=== PATIENT | female | born 1940 | race African-American/Black ===

== ENCOUNTER 2016-12-07 21:27 | Emergency (ER) | payer MEDICARE ==
[~2016-12-07] VITALS: Ht 160 cm; Wt 68.0 kg
--- NOTE | ~2016-12-07 | EKG ---
[place] [address] [facility] [place] [address] ELECTROCARDIOGRAM REPORT Name: JAZ REDMAN [id number] Admission: 12/07/16 Attend Phys: Discharge: 12/08/16 Date of : 44 Report #: [id number] THIS REPORT FOR: //name// [facility] ED Test Date: 2016-12-07 Test Time: 21:32:09 Pat Name: JAZ REDMAN Department: Room: Gender: F Vmware Systems Administrator: JALEN : 1940 Requested By: Eduardo Wolf Order Number: [id number] MD: Valdez Mckeon Measurements Intervals [place] Rate: 80 P: 26 NH: 216 QRS: 250 QRSD: 158 T: 117 QT: 446 QTc: 515 Interpretive Statements Atrial fibrillation Left bundle branch block Leftward axis No previous ECG available for comparison Electronically Signed On 12-09-2016 7:52:43 CDT by Valdez Mckeon [email or web address] <ELECTRONICALLY SIGNED> By: Valdez Mckeon MD, [facility] 12/09/16 0752 [id number] 31 Valdez Mckeon MD, FACC /EPI
[2016-12-07] MEDS ORDERED: ASPIR 8181 MG PO (21:59)
[2016-12-07] MEDS ORDERED: COMBIGAN EYE DR10 ML OPHTHALMIC (22:00)
[2016-12-07] MEDS ORDERED: FLORINEF ACETA0.1 MG PO (22:01)
[2016-12-07] MEDS ORDERED: CELEXA20 MG PO (22:01)
[2016-12-07] MEDS ORDERED: DUONEB 2.5-0.5 M3 ML INH (22:02)
[2016-12-07] MEDS ORDERED: XALATAN2.5 ML OPHTHALMIC (22:02)
[2016-12-07] MEDS ORDERED: NEURONTIN 300300 M1 PO (22:02)
[2016-12-07] MEDS ORDERED: OMEPRAZOLE 20 M20 M1 PO (22:03)
[2016-12-07] MEDS ORDERED: NITROGLYCERIN0.4 MG SUBLING (22:03)
[2016-12-07] MEDS ORDERED: MIDODRINE HCL 55 M1 PO (22:03)
[2016-12-07] MEDS ORDERED: RENA-VITE RX T1 EACH PO (22:03)
[2016-12-07] MEDS ORDERED: MUCINEX600 MG PO (22:04)
[2016-12-07] MEDS ORDERED: TRAZODONE HCL50 MG PO (22:04)
[2016-12-07] MEDS ORDERED: SPIRIVA INH (22:04)
[2016-12-07] MEDS ORDERED: TORSEMIDE100 MG PO (22:04)
[2016-12-07] MEDS ORDERED: TRIAMCINOLONE A80 G2 TOP (22:05)
[2016-12-07] MEDS ORDERED: GABAPENTIN 100100 MG PO (22:05)
[2016-12-07] MEDS ORDERED: LIDODERM1 EACH TRANSDERM (22:05)
[2016-12-07] MEDS ORDERED: PERCOCET PO (22:06)
[2016-12-07] MEDS ORDERED: VOLTAREN GEL 1100 G2 TOP (22:06)
[2016-12-07] MEDS ORDERED: SYMBICORT160 MCG/4. INH (22:06)
[2016-12-07 23:07] LABS: HEMATOCRIT 24.4 % (37.0-47.0); HEMOGLOBIN 8.3 gm/dL (12.0-15.0); MCH 32.7 pg (26.0-34.0); MCHC 34.1 g/dL (28.0-37.0); MCV 96.1 fL (80.0-100.0); PLATELET COUNT 132 thou/uL (150-400); RBC 2.54 mil/uL (4.20-5.00); RDW 19.1 % (10.5-14.5); WBC 6.1 thou/uL (4.0-11.0)
[2016-12-07 23:09] LABS: MANUAL DIFF YES
[2016-12-07 23:15] LABS: ANION GAP 11 mmol/L (7-16); BUN 10 mg/dL (7-18); CALCIUM 9.1 mg/dL (8.5-10.1); CHLORIDE 98 mmol/L (98-107); CO2 29 mmol/L (21-32); CREATININE 2.6 mg/dL (0.6-1.0); GLUCOSE 96 mg/dL (74-106); SODIUM 138 mmol/L (136-145)
[2016-12-07 23:24] LABS: ALBUMIN 2.4 g/dL (3.4-5.0); ALKALINE PHOSPHATASE 138 U/L (46-116); SGOT 22 U/L (15-37); SGPT 12 U/L (30-65); TOTAL BILIRUBIN 0.9 mg/dL (<0.1-1.0); TOTAL PROTEIN 6.4 g/dL (6.4-8.2); TROPONIN-I < 0.04 ng/mL (<0.04-0.07)
[2016-12-08 01:18] LABS: ABSOLUTE NEUTROPHILS 4.8 thou/uL (1.4-8.2); ANISOCYTOSIS 2+; TOTAL CELL COUNT 100
[2016-12-08 01:32] VITALS: BP 113/46
== END 2016-12-08 01:32 | disposition home or self-care (01) ==
LOC: ER 21:27
PROVIDERS: Physician Assistant
DX: I13.0 Hypertensive heart and chronic kidney disease with heart failure and stage 1 through stage 4 chronic kidney disease, or unspecified chronic kidney disease (principal); N18.9 Chronic kidney disease, unspecified; I50.9 Heart failure, unspecified; J44.9 Chronic obstructive pulmonary disease, unspecified; J96.12 Chronic respiratory failure with hypercapnia; Z79.82 Long term (current) use of aspirin

== ENCOUNTER 2016-12-22 14:40 | Emergency (ER) | payer MEDICARE ==
[~2016-12-22] VITALS: Ht 160 cm; Wt 90.7 kg
--- NOTE | ~2016-12-22 | EKG ---
[address] [address] ELECTROCARDIOGRAM REPORT Name: JAZ REDMAN Room #: [facility]..#: [id number] Admission: Attend Phys: Discharge: Date of : 42 Report #: [id number] THIS REPORT FOR: //name// [facility] ED Test Date: 2016-12-22 Test Time: 15:00:43 Pat Name: JAZ REDMAN Department: Room: Gender: F Hot Saw Operator: [id number] : 1940 Requested By: Sully Shea Order Number: [id number] MD: Ranjit Hinton Measurements Intervals [place] Rate: 66 P: [place]: QRS: -63 QRSD: 169 T: 65 QT: 481 QTc: 505 Interpretive Statements Atrial fibrillation Left bundle branch block Compared to ECG 12/07/2016 21:32:09 Left-axis deviation no longer present Electronically Signed On 12-22-2016 15:52:46 CDT by Ranjit Hinton [email or web address] <ELECTRONICALLY SIGNED> By: Ranjit Hinton MD 12/22/16 1552 1500 MD MONIQUE Lake
[~2016-12-22 14:40] MED LIST: ASPIR 8181 MG PO; CELEXA20 MG PO; COMBIGAN EYE DR10 ML OPHTHALMIC; DUONEB 2.5-0.5 M3 ML INH; FLORINEF ACETA0.1 MG PO; GABAPENTIN 100100 MG PO; LIDODERM1 EACH TRANSDERM; MIDODRINE HCL 55 M1 PO; MUCINEX600 MG PO; NEURONTIN 300300 M1 PO; NITROGLYCERIN0.4 MG SUBLING; OMEPRAZOLE 20 M20 M1 PO; PERCOCET PO; RENA-VITE RX T1 EACH PO; SPIRIVA INH; SYMBICORT160 MCG/4. INH; TORSEMIDE100 MG PO; TRAZODONE HCL50 MG PO; TRIAMCINOLONE A80 G2 TOP; VOLTAREN GEL 1100 G2 TOP; XALATAN2.5 ML OPHTHALMIC
[2016-12-22 16:04] LABS: HEMATOCRIT 22.6 % (37.0-47.0); HEMOGLOBIN 7.7 gm/dL (12.0-15.0); MCH 32.6 pg (26.0-34.0); MCHC 34.3 g/dL (28.0-37.0); MCV 95.1 fL (80.0-100.0); PLATELET COUNT 151 thou/uL (150-400); RBC 2.37 mil/uL (4.20-5.00); RDW 18.8 % (10.5-14.5); WBC 9.7 thou/uL (4.0-11.0)
[2016-12-22 16:05] LABS: MANUAL DIFF YES
[2016-12-22 16:20] LABS: CALCIUM 9.9 mg/dL (8.5-10.1); CREATININE 3.6 mg/dL (0.6-1.0); POTASSIUM 4.7 mmol/L (3.5-5.1)
[2016-12-22 16:30] LABS: ABSOLUTE NEUTROPHILS 6.9 thou/uL (1.4-8.2); ANISOCYTOSIS 1+; TOTAL CELL COUNT 100
[2016-12-22 17:54] VITALS: BP 133/56
== END 2016-12-22 17:55 ==
LOC: ER 14:40
PROVIDERS: Emergency Medicine
DX: D64.9 Anemia, unspecified (principal); J44.9 Chronic obstructive pulmonary disease, unspecified; I12.9 Hypertensive chronic kidney disease with stage 1 through stage 4 chronic kidney disease, or unspecified chronic kidney disease; N18.9 Chronic kidney disease, unspecified

== ENCOUNTER 2016-12-26 06:31 | Inpatient (IN) | payer OTHER ==
[~2016-12-26] VITALS: Ht 162.6 cm; Wt 94.5 kg
[2016-12-26] VITALS (52 sets, daily range): BP systolic 62–159; BP diastolic 30–123
--- NOTE | ~2016-12-26 | HC ---
[facility] [place] [address] CONSULTATION Name: JAZ REDMAN Room #: [facility]-P ADM IN M.R.#: [id number] Admission: 12/26/16 Attend Phys: Cirilo Wade MD Discharge: Date of : 42 Report #: [id number] THIS REPORT FOR: //name// CC: Carol Wade REASON FOR CONSULTATION: I was asked to evaluate concerning septic shock. HISTORY OF PRESENT ILLNESS: The patient was a 76-year-old with end-stage renal disease who resides at [facility]. She dialyzes through left upper extremity AV fistula. 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 The patient presents with fever, hypotension, hyperkalemia, abdominal pain. No reported diarrhea. She has been given Kayexalate which resulted in loose stool. No nausea or vomiting. Denies any cough or sputum production. She is on oxygen mask at this time. PAST MEDICAL HISTORY: Hypertension, end-stage renal disease, subluxation of the right hip, COPD, coronary artery disease, coronary bypass grafting. ALLERGIES: None. MEDICATIONS: Aspirin, Florinef, gabapentin, midodrine, torsemide, trazodone, lidocaine, oxycodone, was given vancomycin and Zosyn in the Emergency Room. FAMILY HISTORY: Noncontributory. SOCIAL HISTORY: longterm resident, otherwise unable to obtain any further history. REVIEW OF SYSTEMS: Noted above, now with indwelling Phipps catheter and bloody urine. Has a wound to her right thigh. No chest pain, no headache. PHYSICAL EXAMINATION: VITAL SIGNS: Temperature 103 degrees, tachycardic at 120, respiratory rate 34, blood pressure is 76/42 at 6 this morning. Currently 119 pulse, respiratory rate 17, blood pressure 99/51. She has been given IV fluids and IV antibiotic therapy. She is now on 2 liters of oxygen per nasal cannula. GENERAL: She was arousable, unable to answer simple questions yes or no. Did report that she is having abdominal pain. Mild nausea. HEENT: Unremarkable. NECK: Supple, no adenopathy. CHEST: Few crackles in the bases posteriorly. HEART: Regular without appreciable murmur. EXTREMITIES: Left upper extremity AV fistula was unremarkable. ABDOMEN: Had ventral hernia. She was mildly distended, she was tender mostly in the upper abdomen. No other masses or hepatosplenomegaly identified. EXTREMITIES: Unremarkable. She had a full thickness wound to the medial thigh [address] [address] CONSULTATION Name: JAZ REDMAN Room #: [address] [place] [address] [place] [facility].#: [id number] Admission: 12/26/16 Attend Phys: Cirilo Wade MD Discharge: Date of : 42 Report #: [id number] with no purulent drainage. LABORATORY STUDIES: Hemoglobin 7.5, WBC 5.4, platelet count 111,000. Differential unremarkable. Sodium 137, potassium 6.1, bicarb of 20, creatinine 5.2. Lactate 5.5. ABGs on nonrebreather mask showed a pO2 of 218, pCO2 of 33, pH 7.39, bicarbonate of 19. Urinalysis, many wbc's, rbc's and bacteria. Blood cultures are pending. Sputum culture to be collected. Chest x-ray, bilateral basilar infiltrates and atelectasis with vascular congestion. IMPRESSION: A 76-year-old with fever and septic shock. Sources to consider would be intraabdominal infection versus urinary tract infection versus pneumonia, healthcare associated. She has end-stage renal disease and hypertension as a baseline. Further complications include hyperkalemia and lactic acidosis. RECOMMENDATION: We will await cultures of blood and urine. Attempt to obtain sputum culture if possible. Continue with broad antibiotic coverage. We will also image her nature abdomen for further evaluation. <ELECTRONICALLY SIGNED> By: David Serrano MD 12/27/16 0823 1039 1115 David Serrano MD /nt
--- NOTE | ~2016-12-26 | EKG ---
[address] [address] ELECTROCARDIOGRAM REPORT Name: JAZ REDMAN Room #: 241-P ADM IN M.R.#: [id number] Admission: 12/26/16 Attend Phys: Cirilo Wade MD Discharge: Date of : 42 Report #: [id number] THIS REPORT FOR: //name// [facility] ED Test Date: 2016-12-26 Test Time: 06:52:15 Pat Name: JAZ REDMAN Department: Room: 241 Gender: F Morning Nanny: J CARLOS : 1940 Requested By: Yue Siegel Order Number: [id number] MD: Ranjit Hinton Measurements Intervals [place] Rate: 114 P: 0 SD: 131 QRS: -104 QRSD: 147 T: 76 QT: 369 QTc: 509 Interpretive Statements Atrial fibrillation. Left atrial enlargement LBBB Electronically Signed On 12-26-2016 16:37:37 CDT by Ranjit Hinton [email or web address] <ELECTRONICALLY SIGNED> By: Ranjit Hinton MD 12/26/16 1637 0652 0652 MD MONIQUE Powell
--- NOTE | ~2016-12-26 | 2DMMODE ---
[facility] [address] [place] [address] 2 D/M-MODE ECHOCARDIOGRAM Name: JAZ REDMAN Room #: 241-P [facility] IN ..#: [id number] Admission: 12/26/16 Attend Phys: Cirilo Wade MD Discharge: Date of : 42 Date of Service: 12/26/16 1439 Report #: [id number] THIS REPORT FOR: //name// APPROVED REPORT Study performed: 12/26/2016 13:06:07 EXAM: Comprehensive 2D, Doppler, and color-flow Echocardiogram Patient Location: Bedside Room #: 241 Status: routine BSA: 1.83 HR: 93 bpm BP: 99/51 mmHg Rhythm: Irregular Other Information Study Quality: Adequate Technically limited study due to Patient in ICU, limited mobility and cooperation. Indications Aortic valve replacement, Sepsis. Hx: Ischemic heart disease, COPD, HTN, ESRD 2D Dimensions RVDd: 52.81 mm LVEF(%): 49.25 (>50%) IVSd: 11.57 (7-11mm) LVOT Diam: 17.87 (18-24mm) LVDd: 44.87 mm PWd: 14.59 (7-11mm) LVDs: 33.75 (25-40mm) Aortic Root: 22.64 mm Henderson's LVEF: 49.25 % Volumes Left Atrial Volume (Systole) Single Plane 4CH: 84.11 mL Single Plane 2CH: 98.51 mL LA ESV Index: 53.00 mL/m2 Aortic Valve AoV Peak Nghia.: 2.63 m/s AO Peak Gr.: 27.79 mmHg LVOT Max P.74 mmHg AO Mean Gr.: 16.92 mmHg AO V2 Mean: 1.96 m/s LVOT Max V: 0.82 m/s AO V2 VTI: 43.45 cm [facility] [place] [address] 2 D/M-MODE ECHOCARDIOGRAM Name: JAZ REDMAN Room #: [facility] IN ..#: [id number] Admission: 12/26/16 Attend Phys: Cirilo Wade MD Discharge: Date of : 42 Date of Service: 12/26/16 1439 Report #: [id number] Vmax: 0.78 cm2 Mitral Valve E/A Ratio: 1.3 MV Decel. Time: 220.80 ms MV E Max Nghia.: 1.43 m/s MV A Nghia.: 1.10 m/s MV PHT: 64.03 ms Pulmonary Valve PV Peak Nghia.: 1.09 m/s PV Peak Gr.: 4.78 mmHg Tricuspid Valve TR Peak Nghia.: 3.32 m/s RAP Estimate: 15.00 mmHg TR Peak Gr.: 44.14 mmHg PA Pressure: 59.00 mmHg Left Ventricle The left ventricle is normal size. Dyskinetic motion of the septum. Mild concentric left ventricular hypertrophy. Left ventricular systolic function is mildly decreased. LVEF is 45-50%. This study is not technically sufficient to allow evaluation of the LV diastolic function. Right Ventricle Right ventricle is dilated. Right ventricle is hypokinetic. Atria Left atrium is severely dilated. Right atrium is severely dilated. Aortic Valve A prosthetic aortic valve is noted (size and manufacture unknown) Peak velocity of 2.6m/s with a peak gradient of 28mmHg and a mean of 17mmHg. Trace aortic regurgitation. Mitral Valve Mitral valve leaflets are moderately thickened and calcified. There is mitral annular calcification. Moderate mitral regurgitation. Tricuspid Valve Tricuspid valve is not well visualized. Severe tricuspid regurgitation. Estimated PAP is 55-60mmHg. [address] [address] 2 D/M-MODE ECHOCARDIOGRAM Name: JAZ REDMAN Room #: 241-P [facility] IN [facility]#: [id number] Admission: 12/26/16 Attend Phys: Cirilo Wade MD Discharge: Date of : 42 Date of Service: 12/26/16 1439 Report #: [id number] Pulmonic Valve The pulmonary valve is normal in structure. Mild pulmonic regurgitation. Great Vessels The aortic root is normal in size. Ascending aorta is not well visualized. IVC is dilated and collapses <50% with inspiration. Pericardium There is no pericardial effusion. <Conclusion> The left ventricle is normal size. Dyskinetic motion of the septum. LVEF is 45-50%. Right ventricle is dilated. Right ventricle is hypokinetic. A prosthetic aortic valve is noted (size and manufacture unknown) Peak velocity of 2.6m/s with a peak gradient of 28mmHg and a mean of 17mmHg. Trace aortic regurgitation. Mitral valve leaflets are moderately thickened and calcified. There is mitral annular calcification. Moderate mitral regurgitation. Tricuspid valve is not well visualized. Severe tricuspid regurgitation. Estimated PAP is 55-60mmHg. The pulmonary valve is normal in structure. Mild pulmonic regurgitation. <ELECTRONICALLY SIGNED> By: Unruly Monsivais MD 12/26/16 1439 38 143 Unruly Monsivais MD /INF
--- NOTE | ~2016-12-26 | EKG ---
[address] [address] ELECTROCARDIOGRAM REPORT Name: JAZ REDMAN Room #: 241-P ADM IN M.R.#: [id number] Admission: 12/26/16 Attend Phys: Cirilo Wade MD Discharge: Date of : 42 Report #: [id number] THIS REPORT FOR: //name// [facility] Test Date: 2016-12-26 Test Time: 15:23:00 Pat Name: JAZ REDMAN Department: Room: 241 P Gender: F Assortment Planner: Laura ROMERO : 1940 Requested By: [place] Order Number: [id number] MD: Ranjit Hinton Measurements Intervals [place] Rate: 119 P: [place]: QRS: 257 QRSD: 160 T: 76 QT: 344 QTc: 485 Interpretive Statements Atrial fibrillation LBBB Electronically Signed On 12-26-2016 16:39:42 CDT by Ranjit Hinton [email or web address] <ELECTRONICALLY SIGNED> By: Ranjit Hinton MD 12/26/16 1639 1523 1523 Ranjit Hinton MD /OTIS
--- NOTE | ~2016-12-26 | EKG ---
[address] [address] ELECTROCARDIOGRAM REPORT Name: JAZ REDMAN Room #: 241-P ADM IN M.R.#: [id number] Admission: 12/26/16 Attend Phys: Cirilo Wade MD Discharge: Date of : 42 Report #: [id number] THIS REPORT FOR: //name// [facility] Test Date: 2016-12-27 Test Time: 13:45:29 Pat Name: JAZ REDMAN Department: Room: 241 P Gender: F Film Painter: Muriel HERNANDEZ : 1940 Requested By: Ranjit Hinton Order Number: [id number] MD: Ranjit Hinton Measurements Intervals [place] Rate: 137 P: [place]: QRS: -90 QRSD: 166 T: 108 QT: 337 QTc: 509 Interpretive Statements Atrial fibrillation Nonspecific IVCD with LAD LVH with secondary repolarization abnormality Electronically Signed On 12-27-2016 15:44:01 CDT by Ranjit Hinton [email or web address] <ELECTRONICALLY SIGNED> By: Ranjit Hinton MD 12/27/16 1544 1345 44 Ranjit Hinton MD /OTIS
--- NOTE | ~2016-12-26 | HC ---
[facility] [place] [address] CONSULTATION Name: JAZ REDMAN Room #: [facility]- ADM IN M.R.#: [id number] Admission: 12/26/16 Attend Phys: Cirilo Wade MD Discharge: Date of : 42 Report #: [id number] THIS REPORT FOR: //name// CC: Carol Wade DATE OF SERVICE: 12/26/2016 REFERRING PROVIDER: Cirilo Wade M.D. REASON FOR CONSULTATION: Severe sepsis. CHIEF COMPLAINT: Abdominal pain and altered mental status. HISTORY OF PRESENT ILLNESS: Our group was asked to see the patient in consultation while hospitalized in the ICU at [facility], a 76-year-old woman with apparently a past pulmonary history of chronic obstructive pulmonary disease, severity not quantified, presented to the Emergency Department from [facility] with complaints of altered mental status. The patient has been on chronic hemodialysis for apparent chronic renal failure and calciphylaxis with an associated lower extremity wound as a consequence. When presenting to the Emergency Department again was noted to be in altered mental status, unable to give any history, difficulty giving a history to me at this time also. Subsequently found to be acidemic with an elevated lactate and hypotensive with hyperkalemia, subsequently admitted for sepsis management, started on antimicrobial therapy, given fluid bolus with plans for continuous renal replacement therapy. The patient has been complaining of abdominal pain with abdominal CT scan pending. The patient just received a right internal jugular triple lumen catheter, chest x-ray pending postprocedure at this time. ALLERGIES: None known. PAST MEDICAL HISTORY: 1. Chronic obstructive pulmonary disease, severity not quantified. 2. History of coronary artery disease. 3. History of generalized debilitation. 4. End-stage kidney disease. 5. Calciphylaxis. 6. Anemia. OUTPATIENT MEDICATIONS: Included aspirin, Combigan eyedrops, Celexa, Florinef, gabapentin, DuoNeb, midodrine, vitamin B, torsemide, Spiriva, guaifenesin, Symbicort, ferrous sulfate, rosuvastatin. SOCIAL HISTORY: Unobtainable due to current status. [facility] [address] [place] [address] CONSULTATION Name: JAZ REDMAN Room #: 241-P [facility] IN M.R.#: [id number] Admission: 12/26/16 Attend Phys: Cirilo Wade MD Discharge: Date of : 42 Report #: [id number] FAMILY HISTORY: Unobtainable due to current status. REVIEW OF SYSTEMS: Very difficult, complains of pain only in the abdomen and can clearly state pain in belly. Difficult to obtain other review of systems due to her current status. PHYSICAL EXAMINATION: VITAL SIGNS: Temperature is 39.5 in the Emergency Department, pulse 120 and regular, respiratory rate 20s, blood pressure 99/51. GENERAL: This is an elderly woman, arousable, but confused. ENT: Clear oropharynx. NECK: Supple. Right internal jugular triple lumen catheter in place. LUNGS: Clear. No wheezes or crackles noted. CARDIOVASCULAR: Heart was regular, 2/6 systolic murmur, best heard at the left sternal border. ABDOMEN: Tender mostly in the right upper quadrant or mid abdomen upper, some voluntary guarding. EXTREMITIES: Markedly diminished pulses, some 1+ lower extremity edema and some chronic venous stasis changes noted in the lower extremities. LABORATORY DATA: White blood cell count 5000, hemoglobin 7.5, hematocrit 22, platelet count 111. Initial labs at 6:45 revealed sodium 137, potassium 6.1, chloride 96, bicarbonate 20, BUN 37, creatinine 5.2, glucose 10.3. Troponin 0.16. Chest x-ray revealed significant cardiomegaly and increased pulmonary vascular congestion post central line placement, x-ray is pending. IMPRESSION: 1. Severe sepsis, suspect from abdominal source. 2. End-stage kidney disease. 3. Hyperkalemia. 4. Hypoxemic respiratory failure. 5. Lactic acidosis. 6. History of chronic obstructive pulmonary disease. 7. Chronic what appears to be hypotension, on Florinef. SUGGESTIONS: 1. Stress dose steroids. 2. Await CT abdomen. 3. Antibiotics per Infectious Disease. 4. Sepsis protocol. 5. Bronchodilators. 6. Continue ICU care. 7. Continue to follow up in the ICU. [address] [address] CONSULTATION Name: JAZ REDMAN Room #: 241-P ADM IN M.R.#: [id number] Admission: 12/26/16 Attend Phys: Cirilo Wade MD Discharge: Date of : 42 Report #: [id number] Total critical care time 35 minutes, not including procedures to this point. By: 1127 1149 Chandu Wiseman MD /nt
--- NOTE | ~2016-12-26 | HC ---
[facility] [address] [place] [address] CONSULTATION Name: JAZ REDMAN Room #: 241-P ADM IN M.R.#: [id number] Admission: 12/26/16 Attend Phys: Cirilo Wade MD Discharge: Date of : 42 Report #: [id number] THIS REPORT FOR: //name// CC: Carol Wade REASON FOR PRESENTATION: Fever, lethargic, weakness. REASON FOR CONSULTATION: End-stage renal disease, on dialysis. HISTORY OF PRESENT ILLNESS: The patient is really not able to provide me with history She has acute mental status changes. She is known to have end-stage renal disease and visited with the Emergency Room on numerous occasions. She is a Vmdmq[facility]Xcpeakgzr[facility]Gwzbhm patient of [facility]. She is receiving therapy at the [facility] for what was described as calciphylactic lesion on the right inner thigh. She is not able to provide me with history and all of the details were obtained from the medical charts. She carries a diagnosis of hypertension, COPD, chronic respiratory failure with hypercapnia in the past. It is not clear to me what the reason of end-stage renal disease is. I talked with the dialysis coordinator at the [facility] and she told me that the patient is usually able to converse and communicate with no issues. This morning, she was sent to the Emergency Room and was found to be in septic shock with hypotension, metabolic acidosis, hyperkalemia. I was consulted to manage her end-stage renal disease. PAST MEDICAL HISTORY: 1. Hypertension. 2. End-stage renal disease. 3. Chronic hypotension. 4. Subluxation of the right hip. 4. COPD. 5. History of coronary artery disease. MEDICATIONS: 1. Aspirin. 2. Florinef. 3. Gabapentin. 4. Midodrine. 5. Torsemide. 6. Trazodone. 7. Lidocaine. 8. Oxycodone. ALLERGIES: None. SOCIAL HISTORY: She resides at the [facility]. Other parts of the history are unobtainable given her mental status. [facility] [address] [place] [address] CONSULTATION Name: JAZ REDMAN Room #: 241-P [facility] IN [facility]#: [id number] Admission: 12/26/16 Attend Phys: Cirilo Wade MD Discharge: Date of : 42 Report #: [id number] FAMILY HISTORY: Unobtainable given the patient's mental status. REVIEW OF SYSTEMS: Unobtainable given the patient's mental status. PHYSICAL EXAMINATION: GENERAL: The patient is lethargic. VITAL SIGNS: Blood pressure 76/42, pulse ox is 87, temperature is 39.5, pulse rate is 122, respiratory rate is 34/ CHEST: With decreased air entry. No crackles. CARDIOVASCULAR: No rub, regular, tachycardic. ABDOMEN: Diffusely tender. LOWER EXTREMITIES: +3 edema. MENTAL STATUS: Disoriented times 3. LABORATORY VALUES: Reviewed. White blood cell count is 5.4, hemoglobin 7.5, platelets 111. Potassium 6.1, lactic acid 5.5. Troponin is mildly elevated. Calcium is 10.3. Imaging including her chest x-ray reviewed, there is a little bit of vascular congestion. ASSESSMENT, IMPRESSION AND PLAN: 1. End-stage renal disease. 2. Septic shock. 3. Lactic acidosis. 4. Hyperkalemia. 5. Thrombocytopenia. 6. Calciphylaxis, currently being treated. 7. Status post coronary artery bypass graft. 1. Admission to the ICU. 2. Septic workup. 3. Bolus with fluid; however, given her volume status, I would prefer to use pressors. 4. Emergent treatment for hyperkalemia given. 5. Appropriate broad spectrum antibiotics received in the Emergency Room. 6. Infectious Disease team consultation. 7. Watch pulmonary status and intubate if necessary. 8. Dialysis will be arranged, she would not be able to tolerate conventional dialysis and will aim for CRRT. <ELECTRONICALLY SIGNED> By: Candace Giron MD 12/28/16 1000 0837 0918 Candace Giron MD /nt
[2016-12-26] MEDS ORDERED: IRON325 PO (06:42)
[2016-12-26] MEDS ORDERED: ENDOCET 5-3251 EACH PO (06:44)
[2016-12-26] MEDS ORDERED: CRESTOR20 MG PO (06:45)
[2016-12-26 07:06] LABS: ABSOLUTE NEUTROPHILS 4.7 thou/uL (1.4-8.2); BASOPHILS 0.1 % (0.0-2.0); HEMOGLOBIN 7.5 gm/dL (12.0-15.0); LYMPHOCYTES 9.5 % (24.0-44.0); MCH 32.4 pg (26.0-34.0); MCV 95.3 fL (80.0-100.0); MONOCYTES 3.3 % (1.0-8.0); PLATELET COUNT 111 thou/uL (150-400); POLYS 87.1 % (36.0-66.0); RBC 2.31 mil/uL (4.20-5.00); WBC 5.4 thou/uL (4.0-11.0)
[2016-12-26 07:13] LABS: MANUAL DIFF NO
[2016-12-26 07:14] LABS: CALCIUM 10.3 mg/dL (8.5-10.1); CREATININE 5.2 mg/dL (0.6-1.0)
[2016-12-26 07:16] LABS: POTASSIUM 6.1 mmol/L (3.5-5.1)
[2016-12-26 07:18] LABS: TROPONIN-I 0.16 ng/mL (<0.04-0.07)
[2016-12-26 07:55] LABS: ABG SAMPLE TYPE ARTERIAL; BE(vivo) -4.5 mmol/L (-2 to +3); HCO3 19.9 mmol/L (22.0-26.0); LACTATE 4.87 mmol/L (0.5-2.0); O2(CT) 12.7 mL/dL (15.0-23.0); O2Hb 97.9 % (92.0-98.0); PCO2 33.6 mmHg (35.0-45.0); PO2 218.2 mmHg (80.0-100.0); STICK SITE R.BRACHIAL; sO2 99.5 % (92.0-98.0); tCO2 20.9 mmol/L (24.0-30.0)
[2016-12-26 07:56] LABS: VDS NONREBREATHER MASK cc
[2016-12-26 08:35] LABS: URINE BLOOD 3+ (Negative); URINE GLUCOSE-RANDOM* NEGATIVE (Negative); URINE KETONES 1+ (Negative); URINE PROTEIN (DIPSTICK) 3+ (Negative)
[2016-12-26 08:36] LABS: URINE LEUKOCYTES-REFLEX 3+ (Negative)
[2016-12-26 08:42] LABS: ICTOTEST (BILI CONFIRMATORY) Negative (Negative); URINE BILIRUBIN NEGATIVE (Negative)
[2016-12-26 08:43] LABS: URINE COLOR RED
[2016-12-26 08:45] LABS: CASTS None Seen /LPF (None Seen); SQUAMOUS 4-10 Moderate /LPF (0-3)
[2016-12-26 08:46] LABS: CRYSTALS None Seen /LPF (None Seen); URINE RBC >20 Many /HPF (0-2); URINE WBC-REFLEX >25 Many /HPF (0-5); WBC CLUMPS Packed (None Seen)
[2016-12-26 12:17] LABS: INR 1.6
[2016-12-26 12:21] LABS: CALCIUM 9.8 mg/dL (8.5-10.1); CREATININE 5.1 mg/dL (0.6-1.0); POTASSIUM 5.2 mmol/L (3.5-5.1)
[2016-12-26 12:24] LABS: PROTIME 16.1 Seconds (9.3-11.4)
[2016-12-26 12:58] LABS: AMYLASE 25 U/L (25-115)
[2016-12-26 14:55] LABS: DIRECT BILIRUBIN 0.9 mg/dL (<0.1-0.3); TOTAL BILIRUBIN 1.4 mg/dL (<0.1-1.0)
[2016-12-26 17:46] LABS: CALCIUM 9.8 mg/dL (8.5-10.1)
[2016-12-26 18:01] LABS: CREATININE 3.1 mg/dL (0.6-1.0); POTASSIUM 3.9 mmol/L (3.5-5.1)
[2016-12-27] VITALS (60 sets, daily range): BP systolic 56–125; BP diastolic 44–114
[2016-12-27 04:34] LABS: HEMATOCRIT 21.8 % (37.0-47.0); MCH 31.3 pg (26.0-34.0); MCHC 31.4 g/dL (28.0-37.0); MCV 99.6 fL (80.0-100.0); RBC 2.19 mil/uL (4.20-5.00)
[2016-12-27 04:36] LABS: HEMOGLOBIN 6.9 gm/dL (12.0-15.0); RDW 19.8 % (10.5-14.5); WBC 12.5 thou/uL (4.0-11.0)
[2016-12-27 04:42] LABS: CALCIUM 8.7 mg/dL (8.5-10.1); CREATININE 2.4 mg/dL (0.6-1.0); POTASSIUM 3.7 mmol/L (3.5-5.1)
[2016-12-27 04:46] LABS: ALBUMIN 1.8 g/dL (3.4-5.0); PHOSPHORUS 3.6 mg/dL (2.5-4.9)
[2016-12-27 05:24] LABS: ABG SAMPLE TYPE ARTERIAL; BE(vivo) -8.8 mmol/L (-2 to +3); HCO3 17.3 mmol/L (22.0-26.0); O2(CT) 10.6 mL/dL (15.0-23.0); O2Hb 91.7 % (92.0-98.0); PO2 83.2 mmHg (80.0-100.0); tCO2 18.4 mmol/L (24.0-30.0)
[2016-12-27 05:25] LABS: LACTATE 12.45 mmol/L (0.5-2.0); STICK SITE R.BRACHIAL; pH 7.275 (7.360-7.450)
[2016-12-27 07:36] LABS: CREATININE 2.5 mg/dL (0.6-1.0); POTASSIUM 3.7 mmol/L (3.5-5.1)
[2016-12-27 22:32] LABS: ABG SAMPLE TYPE ARTERIAL; BE(vivo) -3.6 mmol/L (-2 to +3); HCO3 21.9 mmol/L (22.0-26.0); LACTATE 11.19 mmol/L (0.5-2.0); O2(CT) 12.3 mL/dL (15.0-23.0); O2Hb 94.3 % (92.0-98.0); PCO2 41.6 mmHg (35.0-45.0); PO2 88.8 mmHg (80.0-100.0); pH 7.339 (7.360-7.450); sO2 96.3 % (92.0-98.0); tCO2 23.2 mmol/L (24.0-30.0)
[2016-12-27 22:33] LABS: STICK SITE R.RADIAL
[2016-12-28] VITALS (49 sets, daily range): BP systolic 54–114; BP diastolic 30–99
[2016-12-28 05:48] LABS: MCH 30.7 pg (26.0-34.0); MCV 95.9 fL (80.0-100.0); PLATELET COUNT 27 thou/uL (150-400); RBC 2.61 mil/uL (4.20-5.00); RDW 20.5 % (10.5-14.5)
[2016-12-28 05:49] LABS: MANUAL DIFF YES
[2016-12-28 06:14] LABS: CALCIUM 8.8 mg/dL (8.5-10.1); POTASSIUM 3.3 mmol/L (3.5-5.1)
[2016-12-28 06:25] LABS: CREATININE 0.7 mg/dL (0.6-1.0)
[2016-12-28 08:53] LABS: ABG SAMPLE TYPE ARTERIAL; BE(vivo) -1.8 mmol/L (-2 to +3); HCO3 24.4 mmol/L (22.0-26.0); LACTATE 10.19 mmol/L (0.5-2.0); O2(CT) 11.5 mL/dL (15.0-23.0); O2Hb 88.4 % (92.0-98.0); PCO2 48.8 mmHg (35.0-45.0); PO2 67.8 mmHg (80.0-100.0); STICK SITE R.BRACHIAL; pH 7.317 (7.360-7.450); sO2 91.9 % (92.0-98.0); tCO2 25.9 mmol/L (24.0-30.0)
[2016-12-28 09:07] LABS: ABSOLUTE NEUTROPHILS 19.6 thou/uL (1.4-8.2); METAMYELOCYTES 3 %; NUCLEATED RBCS 2 /100WBC; TOTAL CELL COUNT 100
[2016-12-28 09:09] LABS: ANISOCYTOSIS 2+; OVALOCYTES FEW
== END 2016-12-28 18:20 | DRG 871 ==
LOC: ER 06:31 → ICU 08:30 → EROBS 08:30 → ICU 09:57
PROVIDERS: Emergency Medicine; Hospitalist; Internal Medicine Pulmonary Disease
PROC: 02HV33Z Insertion of Infusion Device into Superior Vena Cava, Percutaneous Approach (ICD-10-PCS; 2016-12-26)
PROC: 5A1D90Z Performance of Urinary Filtration, Continuous, Greater than 18 hours Per Day (ICD-10-PCS; 2016-12-26)
PROC: 30243N1 Transfusion of Nonautologous Red Blood Cells into Central Vein, Percutaneous Approach (ICD-10-PCS; 2016-12-27)
PROC: 5A09357 Assistance with Respiratory Ventilation, Less than 24 Consecutive Hours, Continuous Positive Airway Pressure (ICD-10-PCS; principal; 2016-12-28)
DX: A41.59 Other Gram-negative sepsis (principal); N18.6 End stage renal disease; I50.43 Acute on chronic combined systolic (congestive) and diastolic (congestive) heart failure; R65.21 Severe sepsis with septic shock; G93.40 Encephalopathy, unspecified; N39.0 Urinary tract infection, site not specified; I13.2 Hypertensive heart and chronic kidney disease with heart failure and with stage 5 chronic kidney disease, or end stage renal disease; J96.11 Chronic respiratory failure with hypoxia; N17.9 Acute kidney failure, unspecified; Z66 Do not resuscitate; J44.9 Chronic obstructive pulmonary disease, unspecified; I25.10 Atherosclerotic heart disease of native coronary artery without angina pectoris; E87.5 Hyperkalemia; E83.59 Other disorders of calcium metabolism; E83.52 Hypercalcemia; E11.22 Type 2 diabetes mellitus with diabetic chronic kidney disease; D64.9 Anemia, unspecified; F03.90 Unspecified dementia, unspecified severity, without behavioral disturbance, psychotic disturbance, mood disturbance, and anxiety; Z96.649 Presence of unspecified artificial hip joint; I48.91 Unspecified atrial fibrillation; Z51.5 Encounter for palliative care; Z82.5 Family history of asthma and other chronic lower respiratory diseases; I69.328 Other speech and language deficits following cerebral infarction; Z95.2 Presence of prosthetic heart valve; Z99.3 Dependence on wheelchair; I25.2 Old myocardial infarction; Z95.1 Presence of aortocoronary bypass graft; Z99.2 Dependence on renal dialysis; Z79.82 Long term (current) use of aspirin; Z79.899 Other long term (current) drug therapy
CPT/HCPCS: 10078; 27000; 32110